=== PATIENT | male | born 1965 | race Caucasian/White ===

== ENCOUNTER 2020-10-21 08:57 | Inpatient (IN) ==
[2020-10-21] MEDS ORDERED: SODIUM CHLORIDE 0.9% 1,000 ML IV STA (09:39)
[2020-10-21] MEDS ORDERED: cefTRIAXone 1,000 MG in SODIUM CHLORIDE 0.9% 100 ML IV STA (10:00)
[2020-10-21] MEDS ORDERED: AZITHROMYCIN INJ 500 MG in SODIUM CHLORIDE 0.9% 250 ML IV STA (10:00)
[2020-10-21] MEDS ORDERED: DEXAMETHASONE 10 MG/1 ML VIAL IV SCH (10:00)
[2020-10-21 10:13] LABS: ABG Base Excess 1.8 MMOL/L (-2.5-2.5); ABG Oxygen Saturation 94.3 % (95-100); ABG PH 7.533 (7.35-7.45); ABG PO2 67.5 MM HG (80-95); ABG TCO2 23.9 MMOL/L (23-27)
[2020-10-21 11:51] LABS: Basophils % 0.2 % (0.0-0.8); Hemoglobin 15.8 GM/DL (14.0-18.0); Immature Granulocytes % 0.5 %; Immature Granulocytes Absolute 0.05 #; Lymphocytes # 0.8 10*3/uL (1.4-4.0); Lymphocytes % 7.5 % (21.2-54.2); Mean Corpuscular HGB Conc 35.1 GM/DL (32-36); Mean Corpuscular Volume 91.8 FL (87-102); Mean Platelet Volume 11.3 FL (9.6-12.0); Monocytes % 9.5 % (1.7-12.7); Neutrophils % 82.3 % (38.7-73.9); Platelet Count 139 T/CUMM (130-400); Red Cell Distribution Width 12.5 % (9.3-17.3)
[2020-10-21 12:05] LABS: PT Patient Result 11.6 SECS (10.5-12.0)
[2020-10-21 12:20] LABS: Albumin 2.6 G/DL (3.4-5.0); Bilirubin,Total 0.7 MG/DL (0.20-1.00); Osmolality,Calculated 263.7 MOS/KG (273-304); Potassium 3.9 MMOL/L (3.5-5.1); Total Protein 6.6 G/DL (6.4-8.2)
[2020-10-21 12:50] LABS: Platelet Estimate Adequate
[2020-10-21] MEDS ORDERED: DEXTROSE 50% 25 GM/50 ML VIAL IV PRN (13:52)
[2020-10-21] MEDS ORDERED: GLUCAGON 1 MG VIAL IM PRN (13:52)
[2020-10-21] MEDS ORDERED: guaiFENesin/DM ER 600-30 MG TABLET PO PRN (13:58)
[2020-10-21] MEDS ORDERED: ONDANSETRON 4 MG/2 ML VIAL IV PRN (13:58)
[2020-10-21] MEDS ORDERED: DOCUSATE SODIUM 100 MG CAPSULE PO PRN (13:58)
[2020-10-21] MEDS ORDERED: ACETAMINOPHEN 325 MG TABLET PO PRN (13:58)
[2020-10-21] MEDS ORDERED: ALBUTEROL INHALER 18 GM INH PRN (15:12)
[2020-10-21 15:49] LABS: Ferritin 3110.2 ng/ml (26-388)
[2020-10-21] MEDS: ENOXAPARIN 40 MG/0.4 ML SYRINGE SUBCUT SCH (19:49)
[2020-10-21] MEDS: ZINC GLUCONATE 50 MG TABLET PO SCH (19:49)
[2020-10-21] MEDS: ASCORBIC ACID 500 MG TABLET PO SCH ×2 (19:49→20:56)
[2020-10-21] MEDS: DEXAMETHASONE 10 MG/1 ML VIAL IV SCH (19:50)
[2020-10-21] MEDS: CHOLECALCIFEROL 1,000 UNIT TABLET PO SCH (19:50)
[2020-10-21] MEDS: CETIRIZINE 10 MG TABLET PO SCH (19:50)
[2020-10-21] MEDS: FAMOTIDINE 20 MG TABLET PO SCH (20:56)
[2020-10-22] MEDS: DEXAMETHASONE 10 MG/1 ML VIAL IV SCH ×4 (02:14→19:57)
[2020-10-22 05:41] LABS: Basophils % 0.1 % (0.0-0.8); Hematocrit 43.8 VOL% (42.0-52.0); Hemoglobin 14.6 GM/DL (14.0-18.0); Immature Granulocytes % 1.3 %; Immature Granulocytes Absolute 0.18 #; Lymphocytes # 0.7 10*3/uL (1.4-4.0); Lymphocytes % 5.3 % (21.2-54.2); Mean Corpuscular HGB Conc 33.3 GM/DL (32-36); Mean Corpuscular Volume 94.4 FL (87-102); Mean Platelet Volume 11.7 FL (9.6-12.0); Monocytes % 6.8 % (1.7-12.7); Neutrophils % 86.5 % (38.7-73.9); Platelet Count 172 T/CUMM (130-400); Red Blood Count 4.64 MC/CUMM (3.8-5.5); Red Cell Distribution Width 12.6 % (9.3-17.3)
[2020-10-22 06:19] LABS: Albumin 2.3 G/DL (3.4-5.0); Bilirubin,Total 0.8 MG/DL (0.20-1.00); Calcium 8.3 MG/DL (8.5-10.1); Ferritin 3099.9 ng/ml (26-388); Osmolality,Calculated 273.1 MOS/KG (273-304); Potassium 3.8 MMOL/L (3.5-5.1); Total Protein 6.7 G/DL (6.4-8.2)
[2020-10-22] MEDS ORDERED: DEXAMETHASONE 4 MG/1 ML VIAL ONE (07:27)
[2020-10-22] MEDS: ALBUTEROL INHALER 18 GM INH SCH ×6 (07:37→23:48)
[2020-10-22] MEDS ORDERED: DEXAMETHASONE 4 MG/1 ML VIAL IV SCH (09:00)
[2020-10-22] MEDS: ZINC GLUCONATE 50 MG TABLET PO SCH (09:06)
[2020-10-22] MEDS: CHOLECALCIFEROL 1,000 UNIT TABLET PO SCH (09:06)
[2020-10-22] MEDS: ASCORBIC ACID 500 MG TABLET PO SCH ×2 (09:06→20:57)
[2020-10-22] MEDS: AZITHROMYCIN 250 MG TABLET PO SCH (09:06)
[2020-10-22] MEDS: CETIRIZINE 10 MG TABLET PO SCH (09:06)
[2020-10-22] MEDS: FAMOTIDINE 20 MG TABLET PO SCH ×2 (09:06→20:57)
[2020-10-22] MEDS: ENOXAPARIN 40 MG/0.4 ML SYRINGE SUBCUT SCH (13:01)
[2020-10-23] MEDS: DEXAMETHASONE 10 MG/1 ML VIAL IV SCH ×4 (01:20→21:03)
[2020-10-23] MEDS: ALBUTEROL INHALER 18 GM INH SCH ×6 (02:53→22:54)
[2020-10-23 06:27] LABS: Basophils % 0.1 % (0.0-0.8); Hematocrit 42.8 VOL% (42.0-52.0); Hemoglobin 14.6 GM/DL (14.0-18.0); Immature Granulocytes % 1.5 %; Immature Granulocytes Absolute 0.31 #; Lymphocytes # 1.1 10*3/uL (1.4-4.0); Lymphocytes % 5.5 % (21.2-54.2); Mean Corpuscular HGB Conc 34.1 GM/DL (32-36); Mean Corpuscular Volume 93.7 FL (87-102); Mean Platelet Volume 12.2 FL (9.6-12.0); Monocytes % 5.9 % (1.7-12.7); Platelet Count 255 T/CUMM (130-400); Red Blood Count 4.57 MC/CUMM (3.8-5.5); Red Cell Distribution Width 12.9 % (9.3-17.3); White Blood Count 20.6 T/CUMM (4-12)
[2020-10-23 06:50] LABS: Band Neutrophils 2 % (0-10); Lymphocytes 8 % (20-55); Platelet Estimate Adequate; Segmented Neutrophils 83 % (50-85); Total Cells Counted 100
[2020-10-23 07:06] LABS: Albumin 2.3 G/DL (3.4-5.0); Bilirubin,Total 0.4 MG/DL (0.20-1.00); Calcium 8.9 MG/DL (8.5-10.1); Potassium 3.5 MMOL/L (3.5-5.1); Total Protein 7.2 G/DL (6.4-8.2)
[2020-10-23 07:07] LABS: Ferritin 2893.4 ng/ml (26-388)
[2020-10-23] MEDS: CHOLECALCIFEROL 1,000 UNIT TABLET PO SCH (08:41)
[2020-10-23] MEDS: FAMOTIDINE 20 MG TABLET PO SCH ×2 (08:41→21:03)
[2020-10-23] MEDS: ASCORBIC ACID 500 MG TABLET PO SCH ×2 (08:42→21:02)
[2020-10-23] MEDS: DIVALPROEX 250 MG TABLET PO SCH ×3 (08:42→21:02)
[2020-10-23] MEDS: CETIRIZINE 10 MG TABLET PO SCH (08:42)
[2020-10-23] MEDS: ZINC GLUCONATE 50 MG TABLET PO SCH (08:42)
[2020-10-23] MEDS: AZITHROMYCIN 250 MG TABLET PO SCH (08:42)
[2020-10-23] MEDS: IVERMECTIN 3 MG TABLET PO SCH (11:12)
[2020-10-23] MEDS: ENOXAPARIN 40 MG/0.4 ML SYRINGE SUBCUT SCH (15:20)
[2020-10-24] MEDS: DEXAMETHASONE 10 MG/1 ML VIAL IV SCH ×4 (01:24→21:15)
[2020-10-24] MEDS: ALBUTEROL INHALER 18 GM INH SCH ×6 (03:54→23:15)
[2020-10-24 05:10] LABS: Basophils % 0.2 % (0.0-0.8); Hematocrit 43.1 VOL% (42.0-52.0); Hemoglobin 14.6 GM/DL (14.0-18.0); Immature Granulocytes % 1.6 %; Immature Granulocytes Absolute 0.26 #; Lymphocytes # 1.2 10*3/uL (1.4-4.0); Lymphocytes % 7.3 % (21.2-54.2); Mean Corpuscular HGB Conc 33.9 GM/DL (32-36); Mean Corpuscular Volume 93.7 FL (87-102); Mean Platelet Volume 11.1 FL (9.6-12.0); Neutrophils % 86.9 % (38.7-73.9); Platelet Count 285 T/CUMM (130-400); Red Cell Distribution Width 12.9 % (9.3-17.3); White Blood Count 16.4 T/CUMM (4-12)
[2020-10-24 05:54] LABS: Ferritin 2466.3 ng/ml (26-388)
[2020-10-24 06:51] LABS: Albumin 2.3 G/DL (3.4-5.0); Bilirubin,Total 0.4 MG/DL (0.20-1.00); Calcium 8.3 MG/DL (8.5-10.1); Osmolality,Calculated 277.2 MOS/KG (273-304); Potassium 3.6 MMOL/L (3.5-5.1)
[2020-10-24] MEDS: DIVALPROEX 250 MG TABLET PO SCH ×3 (08:04→21:16)
[2020-10-24] MEDS: ASCORBIC ACID 500 MG TABLET PO SCH ×2 (08:04→21:16)
[2020-10-24] MEDS: CHOLECALCIFEROL 1,000 UNIT TABLET PO SCH (08:04)
[2020-10-24] MEDS: IVERMECTIN 3 MG TABLET PO SCH (08:04)
[2020-10-24] MEDS: FAMOTIDINE 20 MG TABLET PO SCH ×2 (08:04→21:16)
[2020-10-24] MEDS: ZINC GLUCONATE 50 MG TABLET PO SCH (08:04)
[2020-10-24] MEDS: AZITHROMYCIN 250 MG TABLET PO SCH (08:04)
[2020-10-24] MEDS: CETIRIZINE 10 MG TABLET PO SCH (08:04)
[2020-10-24] MEDS: ENOXAPARIN 40 MG/0.4 ML SYRINGE SUBCUT SCH (13:01)
[2020-10-24] MEDS: MELATONIN 3 MG TABLET PO PRN (21:16)
[2020-10-25] MEDS: DEXAMETHASONE 10 MG/1 ML VIAL IV SCH ×4 (02:06→21:07)
[2020-10-25] MEDS: ALBUTEROL INHALER 18 GM INH SCH ×6 (03:59→23:36)
[2020-10-25 05:20] LABS: Basophils % 0.2 % (0.0-0.8); Hematocrit 40.5 VOL% (42.0-52.0); Hemoglobin 13.6 GM/DL (14.0-18.0); Immature Granulocytes % 1.8 %; Immature Granulocytes Absolute 0.25 #; Lymphocytes % 6.9 % (21.2-54.2); Mean Corpuscular HGB Conc 33.6 GM/DL (32-36); Mean Corpuscular Volume 95.3 FL (87-102); Mean Platelet Volume 10.9 FL (9.6-12.0); Monocytes % 4.8 % (1.7-12.7); Neutrophils % 86.3 % (38.7-73.9); Platelet Count 312 T/CUMM (130-400); Red Blood Count 4.25 MC/CUMM (3.8-5.5); Red Cell Distribution Width 12.8 % (9.3-17.3); White Blood Count 13.8 T/CUMM (4-12)
[2020-10-25 05:46] LABS: Calcium 8.2 MG/DL (8.5-10.1); Osmolality,Calculated 286.4 MOS/KG (273-304)
[2020-10-25 05:50] LABS: Albumin 2.3 G/DL (3.4-5.0); Bilirubin,Total 0.5 MG/DL (0.20-1.00); Calcium 8.4 MG/DL (8.5-10.1); Ferritin 1972.3 ng/ml (26-388); Total Protein 6.4 G/DL (6.4-8.2)
[2020-10-25 05:54] LABS: Osmolality,Calculated 275.2 MOS/KG (273-304)
[2020-10-25 06:04] LABS: Hypochromasia Slight; Lymphocytes 7 % (20-55); Segmented Neutrophils 89 % (50-85); Total Cells Counted 100
[2020-10-25 06:05] LABS: Microcytosis Slight; Platelet Estimate Normal
[2020-10-25] MEDS: DIVALPROEX 250 MG TABLET PO SCH ×3 (08:45→21:06)
[2020-10-25] MEDS: CHOLECALCIFEROL 1,000 UNIT TABLET PO SCH (08:45)
[2020-10-25] MEDS: ZINC GLUCONATE 50 MG TABLET PO SCH (08:45)
[2020-10-25] MEDS: CETIRIZINE 10 MG TABLET PO SCH (08:45)
[2020-10-25] MEDS: FAMOTIDINE 20 MG TABLET PO SCH ×2 (08:45→21:06)
[2020-10-25] MEDS: AZITHROMYCIN 250 MG TABLET PO SCH (08:45)
[2020-10-25] MEDS: ASCORBIC ACID 500 MG TABLET PO SCH ×2 (08:46→21:06)
[2020-10-25] MEDS: IVERMECTIN 3 MG TABLET PO SCH (08:46)
[2020-10-25] MEDS: ENOXAPARIN 40 MG/0.4 ML SYRINGE SUBCUT SCH (13:07)
[2020-10-25] MEDS ORDERED: LORazepam 2 MG/1 ML VIAL IV ONE (13:42)
[2020-10-25 14:59] LABS: ABG Base Excess 6.2 MMOL/L (-2.5-2.5); ABG HCO3 29.9 MMOL/L (20-26); ABG Oxygen Saturation 92.1 % (95-100); ABG PCO2 36.9 MM HG (35-48); ABG PH 7.509 (7.35-7.45); ABG TCO2 25.1 MMOL/L (23-27)
[2020-10-26] MEDS: DEXAMETHASONE 10 MG/1 ML VIAL IV SCH ×3 (01:35→21:21)
[2020-10-26] MEDS: LORazepam 2 MG/1 ML VIAL IV PRN (02:32)
[2020-10-26] MEDS: ALBUTEROL INHALER 18 GM INH SCH ×6 (02:32→23:00)
[2020-10-26 03:32] LABS: ABG Base Excess 5.2 MMOL/L (-2.5-2.5); ABG HCO3 29.1 MMOL/L (20-26); ABG Oxygen Saturation 96.4 % (95-100); ABG PCO2 38.5 MM HG (35-48); ABG PH 7.484 (7.35-7.45); ABG PO2 84.7 MM HG (80-95); ABG TCO2 24.6 MMOL/L (23-27)
[2020-10-26 04:54] LABS: Basophils % 0.1 % (0.0-0.8); Hematocrit 44.2 VOL% (42.0-52.0); Hemoglobin 14.6 GM/DL (14.0-18.0); Immature Granulocytes % 1.2 %; Immature Granulocytes Absolute 0.15 #; Lymphocytes # 0.6 10*3/uL (1.4-4.0); Lymphocytes % 4.4 % (21.2-54.2); Mean Corpuscular Volume 95.1 FL (87-102); Mean Platelet Volume 10.6 FL (9.6-12.0); Monocytes % 4.2 % (1.7-12.7); Neutrophils % 90.1 % (38.7-73.9); Platelet Count 353 T/CUMM (130-400); Red Blood Count 4.65 MC/CUMM (3.8-5.5); Red Cell Distribution Width 12.8 % (9.3-17.3)
[2020-10-26 05:21] LABS: Albumin 2.4 G/DL (3.4-5.0); Bilirubin,Total 0.6 MG/DL (0.20-1.00); Calcium 8.4 MG/DL (8.5-10.1); Osmolality,Calculated 292.1 MOS/KG (273-304); Potassium 4.1 MMOL/L (3.5-5.1); Total Protein 6.4 G/DL (6.4-8.2)
[2020-10-26 05:48] LABS: Lymphocytes 5 % (20-55); Platelet Estimate Normal; Segmented Neutrophils 92 % (50-85); Total Cells Counted 100
[2020-10-26] MEDS: CHOLECALCIFEROL 1,000 UNIT TABLET PO SCH (08:13)
[2020-10-26] MEDS: IVERMECTIN 3 MG TABLET PO SCH (08:13)
[2020-10-26] MEDS: CETIRIZINE 10 MG TABLET PO SCH (08:13)
[2020-10-26] MEDS: DIVALPROEX 250 MG TABLET PO SCH ×3 (08:13→21:15)
[2020-10-26] MEDS: ZINC GLUCONATE 50 MG TABLET PO SCH (08:13)
[2020-10-26] MEDS: ASCORBIC ACID 500 MG TABLET PO SCH ×2 (08:13→21:14)
[2020-10-26] MEDS: FAMOTIDINE 20 MG TABLET PO SCH ×2 (08:13→21:14)
[2020-10-26] MEDS: ENOXAPARIN 40 MG/0.4 ML SYRINGE SUBCUT SCH (15:15)
[2020-10-27] MEDS: ALBUTEROL INHALER 18 GM INH SCH ×5 (03:00→21:08)
[2020-10-27 05:34] LABS: Basophils % 0.1 % (0.0-0.8); Hematocrit 43.4 VOL% (42.0-52.0); Hemoglobin 14.5 GM/DL (14.0-18.0); Immature Granulocytes % 0.7 %; Immature Granulocytes Absolute 0.11 #; Lymphocytes # 0.7 10*3/uL (1.4-4.0); Lymphocytes % 4.7 % (21.2-54.2); Mean Corpuscular HGB Conc 33.4 GM/DL (32-36); Mean Platelet Volume 10.5 FL (9.6-12.0); Monocytes % 4.7 % (1.7-12.7); Neutrophils % 89.8 % (38.7-73.9); Platelet Count 388 T/CUMM (130-400); Red Blood Count 4.57 MC/CUMM (3.8-5.5); Red Cell Distribution Width 12.3 % (9.3-17.3); White Blood Count 14.7 T/CUMM (4-12)
[2020-10-27 05:59] LABS: Lymphocytes 8 % (20-55); Platelet Estimate Adequate; Segmented Neutrophils 88 % (50-85); Total Cells Counted 100
[2020-10-27 06:01] LABS: Calcium 8.1 MG/DL (8.5-10.1); Osmolality,Calculated 289.3 MOS/KG (273-304)
[2020-10-27 06:03] LABS: ABG Base Excess 6.2 MMOL/L (-2.5-2.5); ABG HCO3 29.9 MMOL/L (20-26); ABG Oxygen Saturation 93.4 % (95-100); ABG PCO2 40.8 MM HG (35-48); ABG PH 7.479 (7.35-7.45); ABG PO2 69.5 MM HG (80-95); ABG TCO2 25.7 MMOL/L (23-27)
[2020-10-27 06:04] LABS: Ferritin 1685.3 ng/ml (26-388)
[2020-10-27] MEDS: ZINC GLUCONATE 50 MG TABLET PO SCH (09:49)
[2020-10-27] MEDS: CHOLECALCIFEROL 1,000 UNIT TABLET PO SCH (09:49)
[2020-10-27] MEDS: CETIRIZINE 10 MG TABLET PO SCH (09:49)
[2020-10-27] MEDS: ASCORBIC ACID 500 MG TABLET PO SCH ×2 (09:49→21:01)
[2020-10-27] MEDS: DEXAMETHASONE 10 MG/1 ML VIAL IV SCH ×2 (09:50→21:01)
[2020-10-27] MEDS: DIVALPROEX 250 MG TABLET PO SCH ×3 (09:50→21:01)
[2020-10-27] MEDS: FAMOTIDINE 20 MG TABLET PO SCH ×2 (09:50→21:01)
[2020-10-27] MEDS: IVERMECTIN 3 MG TABLET PO SCH (09:51)
[2020-10-27] MEDS: ENOXAPARIN 40 MG/0.4 ML SYRINGE SUBCUT SCH (15:01)
[2020-10-27] MEDS: MELATONIN 3 MG TABLET PO PRN (21:01)
[2020-10-28] MEDS: LORazepam 2 MG/1 ML VIAL IV PRN (00:05)
[2020-10-28] MEDS: ALBUTEROL INHALER 18 GM INH SCH ×6 (00:05→21:43)
[2020-10-28 06:25] LABS: Hematocrit 44.5 VOL% (42.0-52.0); Hemoglobin 14.8 GM/DL (14.0-18.0); Immature Granulocytes % 0.6 %; Immature Granulocytes Absolute 0.07 #; Lymphocytes # 0.7 10*3/uL (1.4-4.0); Lymphocytes % 6.2 % (21.2-54.2); Mean Corpuscular HGB Conc 33.3 GM/DL (32-36); Mean Corpuscular Volume 95.3 FL (87-102); Monocytes % 5.4 % (1.7-12.7); Neutrophils % 87.8 % (38.7-73.9); Platelet Count 376 T/CUMM (130-400); Red Blood Count 4.67 MC/CUMM (3.8-5.5); Red Cell Distribution Width 12.3 % (9.3-17.3); White Blood Count 11.7 T/CUMM (4-12)
[2020-10-28 06:59] LABS: Ferritin 1660.3 ng/ml (26-388)
[2020-10-28 07:07] LABS: Calcium 8.2 MG/DL (8.5-10.1); Osmolality,Calculated 291.1 MOS/KG (273-304); Potassium 4.7 MMOL/L (3.5-5.1)
[2020-10-28] MEDS: ASCORBIC ACID 500 MG TABLET PO SCH ×2 (09:32→21:43)
[2020-10-28] MEDS: FAMOTIDINE 20 MG TABLET PO SCH ×2 (09:32→21:43)
[2020-10-28] MEDS: DIVALPROEX 250 MG TABLET PO SCH ×3 (09:32→21:43)
[2020-10-28] MEDS: CETIRIZINE 10 MG TABLET PO SCH (09:32)
[2020-10-28] MEDS: DEXAMETHASONE 10 MG/1 ML VIAL IV SCH (09:32)
[2020-10-28] MEDS: ZINC GLUCONATE 50 MG TABLET PO SCH (10:35)
[2020-10-28] MEDS: CHOLECALCIFEROL 1,000 UNIT TABLET PO SCH (10:35)
[2020-10-28] MEDS: ENOXAPARIN 40 MG/0.4 ML SYRINGE SUBCUT SCH (16:08)
[2020-10-29] MEDS: ALBUTEROL INHALER 18 GM INH SCH ×7 (00:20→23:15)
[2020-10-29 05:28] LABS: Basophils % 0.1 % (0.0-0.8); Eosinophils # 0.1 10*3/uL (0.0-0.87); Eosinophils % 0.3 % (0.00-10.9); Hemoglobin 14.9 GM/DL (14.0-18.0); Immature Granulocytes % 0.6 %; Lymphocytes # 1.6 10*3/uL (1.4-4.0); Lymphocytes % 8.6 % (21.2-54.2); Mean Corpuscular HGB Conc 32.4 GM/DL (32-36); Mean Corpuscular Volume 96.2 FL (87-102); Mean Platelet Volume 9.8 FL (9.6-12.0); Neutrophils % 86.4 % (38.7-73.9); Platelet Count 411 T/CUMM (130-400); Red Blood Count 4.78 MC/CUMM (3.8-5.5); White Blood Count 18.1 T/CUMM (4-12)
[2020-10-29 05:59] LABS: Calcium 8.5 MG/DL (8.5-10.1); Osmolality,Calculated 281.5 MOS/KG (273-304); Potassium 4.2 MMOL/L (3.5-5.1)
[2020-10-29 06:04] LABS: Ferritin 1741.6 ng/ml (26-388)
[2020-10-29] MEDS ORDERED: DEXAMETHASONE 10 MG/1 ML VIAL IV SCH (09:00)
[2020-10-29] MEDS: FAMOTIDINE 20 MG TABLET PO SCH ×2 (10:19→21:14)
[2020-10-29] MEDS: CHOLECALCIFEROL 1,000 UNIT TABLET PO SCH (10:19)
[2020-10-29] MEDS: DIVALPROEX 250 MG TABLET PO SCH ×3 (10:20→21:13)
[2020-10-29] MEDS: CETIRIZINE 10 MG TABLET PO SCH (10:20)
[2020-10-29] MEDS: ASCORBIC ACID 500 MG TABLET PO SCH ×2 (10:20→21:14)
[2020-10-29] MEDS: ZINC GLUCONATE 50 MG TABLET PO SCH (10:39)
[2020-10-29] MEDS ORDERED: cefTRIAXone 1,000 MG in SODIUM CHLORIDE 0.9% 100 ML IV SCH (13:30)
[2020-10-29] MEDS: ENOXAPARIN 40 MG/0.4 ML SYRINGE SUBCUT SCH (21:14)
[2020-10-29] MEDS: MELATONIN 3 MG TABLET PO PRN (21:15)
[2020-10-30] MEDS: ALBUTEROL INHALER 18 GM INH SCH ×5 (04:00→18:14)
[2020-10-30 06:57] LABS: Basophils % 0.1 % (0.0-0.8); Eosinophils # 0.1 10*3/uL (0.0-0.87); Eosinophils % 1.1 % (0.00-10.9); Hematocrit 42.8 VOL% (42.0-52.0); Hemoglobin 14.1 GM/DL (14.0-18.0); Immature Granulocytes % 1.7 %; Immature Granulocytes Absolute 0.18 #; Lymphocytes # 1.5 10*3/uL (1.4-4.0); Lymphocytes % 13.8 % (21.2-54.2); Mean Corpuscular HGB Conc 32.9 GM/DL (32-36); Mean Corpuscular Volume 95.1 FL (87-102); Mean Platelet Volume 11.5 FL (9.6-12.0); Monocytes % 5.5 % (1.7-12.7); Neutrophils % 77.8 % (38.7-73.9); Red Cell Distribution Width 12.2 % (9.3-17.3)
[2020-10-30 06:58] LABS: Platelet Count 229 T/CUMM (130-400); White Blood Count 10.5 T/CUMM (4-12)
[2020-10-30 07:58] LABS: Calcium 8.2 MG/DL (8.5-10.1); Osmolality,Calculated 277.7 MOS/KG (273-304); Potassium 4.4 MMOL/L (3.5-5.1)
[2020-10-30] MEDS: ASCORBIC ACID 500 MG TABLET PO SCH (08:41)
[2020-10-30] MEDS: DIVALPROEX 250 MG TABLET PO SCH ×2 (08:42→15:13)
[2020-10-30] MEDS: ZINC GLUCONATE 50 MG TABLET PO SCH (08:42)
[2020-10-30] MEDS: FAMOTIDINE 20 MG TABLET PO SCH (08:42)
[2020-10-30] MEDS: CHOLECALCIFEROL 1,000 UNIT TABLET PO SCH (08:42)
[2020-10-30] MEDS: CETIRIZINE 10 MG TABLET PO SCH (08:43)
[2020-10-30] MEDS ORDERED: DEXAMETHASONE 4 MG TABLET PO SCH (09:00)
[2020-10-30 21:18] VITALS: BP 126/85
== END 2020-10-30 18:45 | DRG 177 ==
LOC: N.ED 08:57 → N.EDINP 13:53 → SUATTDRO 13:53 → N.EDINP 10-22 09:27 → N.2E 10-22 09:57 → N.5E 10-30 12:15
PROVIDERS: ADMIT Internal Medicine; ATTEND Emergency Medicine